=== PATIENT | female | born 1980 ===

== ENCOUNTER 2016-08-10 11:18 | Emergency (ER) | payer BC ==
[~2016-08-10] VITALS: Ht 154.9 cm; Wt 87.5 kg
[~2016-08-10 11:18] MED LIST: PROVENTIL HFA6.7 GM INH; QVAR8.7 G1 INH
[2016-10-19] MEDS ORDERED: SYNTHROID25 MCG PO (01:04)
== END 2016-08-10 11:55 | disposition short-term general hospital (02) ==
LOC: ER 11:18
DX: H10.9 Unspecified conjunctivitis (principal)